=== PATIENT | male | born 1940 | race Caucasian/White ===

== ENCOUNTER 2021-04-23 20:26 | Inpatient (IN) ==
--- NOTE | 2021-04-23 23:00 | Emergency Department Note ---
History of Present Illness General Chief complaint: Laceration/Cut (Non-Suture) Stated complaint: FELL DOWN STEPS, LAC ON EYEBROW Time Seen by Provider: 04/23/21 22:58 Source: patient Mode of arrival: ambulatory Limitations: no limitations History of Present Illness Provider complaint: Fall downstairs, laceration to right forehead Onset (ago): hour(s) Location: head, upper extremity and lower extremity Radiation: non-radiation Severity: mild Pain Consistency: + intermittent Maximum Pain Intensity: 2 Quality: + aching Relieved By: + immobilization Exacerbated By: + movement Associated symptoms: + headaches, + weakness and + other (Upper respiratory symptoms); no confusion, no chest pain, no cough, no nausea/vomiting or no shortness of breath Treatments prior to arrival: none Home Medications Medication Instructions Recorded Confirmed Type fexofenadine-pseudoephedrine ER 1 tab PO QAM 06/29/19 04/24/21 History 180 mg-240 mg tablet,ext.release 24 hr (Joyce-D 24 Hour) ibuprofen 200 mg tablet (Advil) 200 mg PO QID PRN 06/29/19 04/24/21 History psyllium seed (sugar) oral powder 1 tbsp PO Q OTHER DAY 06/29/19 04/24/21 History (Metamucil (sugar)) rosuvastatin 10 mg tablet 5 mg PO QPM 06/29/19 04/24/21 History triamcinolone acetonide 55 mcg 1 spray INTRANASAL BID 06/29/19 04/24/21 History nasal spray aerosol (Nasacort) sildenafil 25 mg tablet (Viagra) 25 mg PO DAILY PRN 07/28/19 04/24/21 History pantoprazole 40 mg tablet,delayed 40 mg PO DAILY #30 tab 08/30/19 04/24/21 Rx release amoxicillin 875 mg-potassium 1 tab PO Q12H 7 Days #14 tab 04/24/21 Rx clavulanate 125 mg tablet (Augmentin) Allergies Allergy/AdvReac Type Severity Reaction Status Date / Time mold Allergy Mild eyes itch Verified 04/24/21 00:27 sneeze cat dander Allergy Unknown Verified 04/24/21 00:27 dog dander Allergy Unknown Verified 04/24/21 00:27 house dust Allergy Unknown Verified 04/24/21 00:27 ragweed pollen Allergy Unknown Verified 04/24/21 00:27 Past Med/Surg History Medical History Abdominal pain CAP (community acquired pneumonia) Chronic obstructive pulmonary disease Hearing deficit BL MARQUEZ Hyperlipidemia Osteoarthritis Prostate cancer S/P BRACHYTHERAPY Tubular adenoma Vertigo Surgical History History of colonoscopy (06/2019) History of esophagogastroduodenoscopy (EGD) (06/2019) History of prostate biopsy History of tonsillectomy and adenoidectomy History of wisdom tooth extraction Family History Mother Fallopian tube cancer, carcinoma Grandmother (Maternal) Family history of diabetes mellitus Brother History of colon polyps Social History Smoking Status: Former smoker Second Hand Exposure: No; Hx Alcohol Use: Yes Alcohol type: beer, wine and hard liquor Hx Substance Use: No Preferred Language: Estonian Communication Ability: Effective Dredge Pipeman Required: No Beliefs That Will Affect Care: None Current Living Situation: Alone Feels Safe at Home: Yes Assistive Devices: Glasses and Hearing Aid - Bilateral Review of Systems See HPI for pertinent positives & negatives. and A total of 10 systems reviewed and were otherwise negative Physical Exam Vital Signs Vital Signs - 24 hr 04/23/21 20:36 04/23/21 23:27 04/24/21 00:14 Temperature 36.6 C Temperature Source Temporal Artery Scan Pulse Rate 108 H Pulse Rate [Radial] 80 85 Respiratory Rate 16 16 16 Respiratory Effort / Characteristics Non-Labored Spontaneous Respiratory Depth Normal Blood Pressure 129/72 Blood Pressure [Left Arm] 132/98 160/80 H Blood Pressure Mean 91 Blood Pressure Mean [Left Arm] 109 106 Pulse Oximetry 94 95 96 Oxygen Delivery Method Room Air Room Air Room Air Sepsis Recent Fever Within 48 Hours No Sepsis New/Unexplained Change in Mental Status No Sepsis Action Taken by Nursing No Action Required 04/24/21 00:15 Temperature Temperature Source Pulse Rate Pulse Rate [Radial] Respiratory Rate Respiratory Effort / Characteristics Respiratory Depth Blood Pressure Blood Pressure [Left Arm] Blood Pressure Mean Blood Pressure Mean [Left Arm] Pulse Oximetry 96 Oxygen Delivery Method Sepsis Recent Fever Within 48 Hours Sepsis New/Unexplained Change in Mental Status Sepsis Action Taken by Nursing GENERAL: Wearing glasses, laceration noted to the right forehead NAD, non-toxic. EYE EXAM: Normal conjunctiva. PERRL, no anisocoria and EOM's grossly intact w/o pain. Supraorbital laceration approximately 3 cm. OROPHARYNX: Dry mucus membranes. Poor dentition noted. NECK: Supple, no nuchal rigidity, no adenopathy, non-tender. No signs of meningismus. No midline C-spine TTP. Chest: No reproducible chest wall pain. LUNGS: Clear to auscultation. Normal chest wall mechanics. HEART: NSR, no MRG. ABDOMEN: Abdomen soft, non-tender, normo-active bowel sounds, no masses, no rebound or guarding. BACK: No CVA TTP. SKIN: No rashes and no bruising. UPPER EXTREMITIES: Upper extremities are grossly normal. Mild pain to the lateral aspect of the right hand at the MCP. LOWER EXTREMITIES: Grossly normal, no edema. Mild pain to the right hip but with good flexion and extension. NEURO EXAM: A&O x3, cranial nerves II-XII grossly intact, normal speech, moves all 4 extremities on command w/o issue. Procedures Laceration Laceration 1: Site: face Side (If applicable): right Size (cm): 3 Description: linear Depth: simple, single layer Local Anesthetic: lidocaine 1% and with epi Amount of anesthesia used (mL): 1 Pre-repair: wound explored, irrigated extensively and deep structures i ntact Skin layer closed with: other (ethilon) Size (cm): 5-0 Number of sutures: 3 Technique: simple, interrupted Course Course Cardiac monitoring: An order was placed for continuous cardiac monitoring. The monitor shows a rate of 85 with sinus rhythm. Administered Medications Discontinued Medications Diphtheria/Pertussis/Tetanus Vacc (Diphtheria/Tetanus/Pertussis 0.5 Ml Syr/Vial) 0.5 ml IM .ONCE ONE Stop: 04/24/21 00:34 Last Admin: 04/24/21 00:56 Dose: 0.5 ml Documented by: [id number] Sodium Chloride (Nss 1000ml) 1,000 mls @ 999 mls/hr IV .Q1H1M ARIELLE Stop: 04/24/21 00:15 Last Admin: 04/23/21 23:27 Dose: 999 mls/hr Documented by: [id number] Medical Decision Making Differential Diagnosis Fracture, dislocation, contusion, intra-abdominal, pneumothorax, intrathoracic, intracranial, neurologic, compartment syndrome, rhabdomyolysis, as well as other pathologies. Medical Records Attestation: I reviewed the patient's medical records. Home Medications Current Medication List: was personally reviewed by me Laboratory Data Attestation: I reviewed the patient's lab results. Result diagrams: 04/23/21 23:20 04/23/21 23:20 Lab Results 04/23/21 04/23/21 04/24/21 Range/Units 23:20 23:20 01:00 WBC 5.83 (4.8-10.8) K/uL RBC 4.48 L (4.7-6.1) M/uL Hgb 14.0 (14.0-18.0) g/dL Hct 40.5 L (42-52) % MCV 90.4 (80-100) fL MCH 31.3 (25-34) pg MCHC 34.6 (32-36) g/dL RDW Std Deviation 47.6 H (36.4-46.3) fL RDW Coeff of Sami 14.3 (11.5-14.5) % Plt Count 117 L (130-400) K/uL MPV 9.2 (7.4-10.4) fL Immature Gran % (Auto) 0.2 % Neut % (Auto) 80.4 % Lymph % (Auto) 14.1 % [place] % (Auto) 5.1 % Eos % (Auto) 0.0 % Baso % (Auto) 0.2 % Neut # (Auto) 4.69 (1.4-6.5) K/uL Lymph # (Auto) 0.82 L (1.2-3.4) K/uL [place] # (Auto) 0.30 (0.11-0.59) K/uL Eos # (Auto) 0.00 (0-0.5) K/uL Baso # (Auto) 0.01 (0-0.2) K/uL Immature Gran # (Auto) 0.01 (0.00-0.02) K/uL Sodium 125 L (136-145) mmol/L Potassium 4.2 (3.5-5.1) mmol/L Chloride 97 L (98-107) mmol/L Carbon Dioxide 21 (21-32) mmol/L Anion Gap 7.0 (3-11) BUN 23 H (7-18) mg/dl Creatinine 1.14 (0.6-1.4) mg/dl Est Cr Clr Drug Dosing Not Reportable Est GFR ( Amer) 69.0 ml/min Est GFR (Non-Af Amer) 59.6 ml/min BUN/Creatinine Ratio 20.2 H (10-20) Glucose 121 H (70-99) mg/dl Calcium 8.6 (8.5-10.1) mg/dl Magnesium 2.2 (1.8-2.4) mg/dl Total Bilirubin 0.7 (0.2-1) mg/dl AST 59 H (15-37) U/L ALT 38 (12-78) U/L Alkaline Phosphatase 76 (45-117) U/L Troponin I 0.017 (0-0.045) ng/ml Total Protein 8.4 H (6.4-8.2) gm/dl Albumin 3.4 (3.4-5.0) gm/dl Globulin 5.0 H (2.5-4.0) gm/dl Albumin/Globulin Ratio 0.7 L (0.9-2) TSH 0.867 (0.300-4.500) uIu/ml COVID-19 Eval Order Covid19 at [facility] SARS-CoV-2 (PCR) (Negative) 04/24/21 Range/Units 01:00 WBC (4.8-10.8) K/uL RBC (4.7-6.1) M/uL Hgb (14.0-18.0) g/dL Hct (42-52) % MCV (80-100) fL MCH (25-34) pg MCHC (32-36) g/dL RDW Std Deviation (36.4-46.3) fL RDW Coeff of Sami (11.5-14.5) % Plt Count (130-400) K/uL MPV (7.4-10.4) fL Immature Gran % (Auto) % Neut % (Auto) % Lymph % (Auto) % [place] % (Auto) % Eos % (Auto) % Baso % (Auto) % Neut # (Auto) (1.4-6.5) K/uL Lymph # (Auto) (1.2-3.4) K/uL [place] # (Auto) (0.11-0.59) K/uL Eos # (Auto) (0-0.5) K/uL Baso # (Auto) (0-0.2) K/uL Immature Gran # (Auto) (0.00-0.02) K/uL Sodium (136-145) mmol/L Potassium (3.5-5.1) mmol/L Chloride (98-107) mmol/L Carbon Dioxide (21-32) mmol/L Anion Gap (3-11) BUN (7-18) mg/dl Creatinine (0.6-1.4) mg/dl Est Cr Clr Drug Dosing Est GFR ( Amer) ml/min Est GFR (Non-Af Amer) ml/min BUN/Creatinine Ratio (10-20) Glucose (70-99) mg/dl Calcium (8.5-10.1) mg/dl Magnesium (1.8-2.4) mg/dl Total Bilirubin (0.2-1) mg/dl AST (15-37) U/L ALT (12-78) U/L Alkaline Phosphatase (45-117) U/L Troponin I (0-0.045) ng/ml Total Protein (6.4-8.2) gm/dl Albumin (3.4-5.0) gm/dl Globulin (2.5-4.0) gm/dl Albumin/Globulin Ratio (0.9-2) TSH (0.300-4.500) uIu/ml COVID-19 Eval Order SARS-CoV-2 (PCR) NEGATIVE (Negative) Imaging Data Attestation: I personally reviewed and interpreted this imaging study as follows: My Impression: Pelvis and right hip x-ray: No obvious fracture dislocation Right hand x-ray: Questionable erosive change versus chronic fracture of the first metacarpal, no obvious fracture over the right fifth metacarpal Radiologist's Impression: CT head: No ICH or fracture CT cervical spine: No obvious fracture dislocation, enlarged lingual tonsil as well as possible lesion of her epiglottis CT facial without: Nasal bone fractures MDM Narrative Patient was seen due to concern for fall down a set of stairs prior to arrival. Patient is not anticoagulated did not pass out. The patient does not take blood thinning medications. The patient does have laceration to the right supraorbital area but no pain to palpation to the neck chest abdomen back or pelvis. The patient did have some mild pain to the right thigh and hip as well as to the right hand. The patient declined any pain medication. The patient did have CT of the head neck and face. Patient does have nasal bone fractures. Patient does have a prominence to the lingual tonsil as well as the epiglottis. The patient is not stridulous or having any difficulty with breathing. Patient was informed that he would likely need follow-up with ENT in the future for further evaluation. Patient initially ambulated to and from the bathroom without issue and is preferring to go home. I did discuss with the patient that he does have some hyponatremia which could contribute to the patient's weakness as the patient had had some weakness and upper respiratory type symptoms. The patient is vaccinated for Covid. The patient's plain films are unremarkable although the patient may have had chronic erosive change to the right first metacarpal but the patient states that that is chronic and has no pain to palpation at this time. The patient was unable to ambulate at the time of discharge as he seemed to be listing to the side. The patient may have combination of fatigue as well as may be postconcussive type symptoms. The patient is awake and alert and follows basic commands. Covid negative. Patient was ordered for shows of Augmentin given the nasal bone fractures him initially was printed a prescription as he was pending to go home but given his gait instability does not believe he would be safe for home at this time. I spoke with Dr. Lam of [facility] and the patient was admitted to the medicine service. Impression & Plan CHI (closed head injury), Fall, Facial laceration, Fracture of nasal bone Discharge Plan Visit Data Chief Complaint: Laceration/Cut (Non-Suture) Stated Complaint: FELL DOWN STEPS, LAC ON EYEBROW ED Provider: Ruy Rogers Discharge Problem: CHI (closed head injury), Fall, Facial laceration, Fracture of nasal bone Patient Disposition: Home - Self-Care Condition: Good Discharge Instructions Rush/Other Patient Handouts: ED Facial Fracture, ED Laceration, Face: Stitches or Tape Activity Restrictions/Additional Instructions: Please return to the emergency department if you have worsening or recurrent symptoms not amenable to at-home treatment. Please call for a follow-up appointment with her primary care physician. Please take your medications as prescribed. If you have other concerns and/or complaints please feel free to also call your primary care physician's office or return the ED for further evaluation, management, and treatment. Take your medications as prescribed. Please make sure that you apply a daily dressing. Change the dressing if it becomes wet or soiled. Please look out for signs of infection such as expanding redness or foul-smelling drainage. You may apply some antibiotic ointment with each daily dressing change. You may apply gentle soap and water but do not submerge the area. Please have your sutures removed in 7 to 10 days. Please consider taking a probiotic. Your CT of the cervical spine noted a concern for prominence of right lingual tonsil as well as the epiglottis. Please talk with your primary care physician about following up with ear nose and throat. You have been examined and treated today on an emergency basis only. This is not a substitute for, or an effort to provide, complete comprehensive medical care. It is impossible to recognize and treat all injuries or illnesses in a single emergency department visit. It is therefore important that you follow up closely with [facility], your PCP, and/or your specialist(s). Call as soon as possible for an appointment. Thank you for your time and consideration. I look forward to speaking with you again soon. Please don't hesitate to call us if you have any questions. Interventions: ED Discharge Assessment Last Done: 04/24/21 02:59 Forms Stand Alone Forms: My [facility], Virtual Emergency Department, Important Visit Information Prescriptions Prescriptions: New amoxicillin-pot clavulanate [Augmentin] 875-125 mg tablet 1 tab PO Q12H 7 Days Qty: 14 RF: 0 No Action pantoprazole 40 mg tablet,delayed release (DR/EC) 40 mg PO DAILY Qty: 30 RF: 11 sildenafil [Viagra] 25 mg tablet 25 mg PO DAILY PRN (Reason: NEEDED) RF: 0 triamcinolone acetonide [Nasacort] 55 mcg Aerosol,[place] 1 spray INTRANASAL BID RF: 0 ibuprofen [Advil] 200 mg Tablet 200 mg PO QID PRN (Reason: Pain) RF: 0 rosuvastatin 10 mg Tablet 5 mg PO QPM RF: 0 Metamucil (sugar) Powder 1 tbsp PO Q OTHER DAY RF: 0 Joyce-D 24 Hour 180-240 mg Tablet Extended Release 24 Hr 1 tab PO QAM RF: 0 Referrals Referrals: PCP,NO [Primary Care Provider] - Discharge Problem: CHI (closed head injury) Qualifiers: Encounter type: initial encounter Qualified Code(s): S09.90XA - Unspecified injury of head, initial encounter Fall Qualifiers: Encounter type: initial encounter Qualified Code(s): W19.XXXA - Unspecified fall, initial encounter Facial laceration Qualifiers: Encounter type: initial encounter Qualified Code(s): S01.81XA - Laceration without foreign body of other part of head, initial encounter Fracture of nasal bone Qualifiers: Encounter type: initial encounter Fracture type: closed Qualified Code(s): S02.2XXA - Fracture of nasal bones, initial encounter for closed fracture
[2021-04-23] MEDS ORDERED: SODIUM CHLORIDE 0.9% 1000ML 1,000 ML IV SCH (23:15)
[2021-04-23 23:37] LABS: Basophils # (auto) 0.01 K/uL (0-0.2); Basophils % (auto) 0.2 %; Hematocrit (blood only) 40.5 % (42-52); Immature Granulocytes # (auto) 0.01 K/uL (0.00-0.02); Immature Granulocytes % (auto) 0.2 %; Lymphocytes # (auto) 0.82 K/uL (1.2-3.4); Lymphocytes % (auto) 14.1 %; Mean Corpuscular Hemoglobin 31.3 pg (25-34); Mean Corpuscular Hgb Conc 34.6 g/dL (32-36); Mean Corpuscular Volume 90.4 fL (80-100); Mean Platelet Volume 9.2 fL (7.4-10.4); Monocytes % (auto) 5.1 %; Neutrophils # (auto) 4.69 K/uL (1.4-6.5); Neutrophils % (auto) 80.4 %; Platelet Count 117 K/uL (130-400); RDW Coefficient of Variation 14.3 % (11.5-14.5); RDW Standard Deviation 47.6 fL (36.4-46.3); Red Blood Count 4.48 M/uL (4.7-6.1); White Blood Count 5.83 K/uL (4.8-10.8)
[2021-04-24 00:04] LABS: Alanine Aminotransferase 38 U/L (12-78); Albumin Level 3.4 gm/dl (3.4-5.0); Aspartate Aminotransferase 59 U/L (15-37); BUN Creatinine Ratio 20.2 (10-20); Blood Urea Nitrogen 23 mg/dl (7-18); Calcium 8.6 mg/dl (8.5-10.1); Carbon Dioxide 21 mmol/L (21-32); Chloride 97 mmol/L (98-107); Est GFR (Non-African American) 59.6 ml/min; Glucose 121 mg/dl (70-99); Magnesium 2.2 mg/dl (1.8-2.4); Potassium 4.2 mmol/L (3.5-5.1); Sodium 125 mmol/L (136-145)
[2021-04-24 00:12] LABS: Albumin Globulin Ratio 0.7 (0.9-2); Alkaline Phosphatase 76 U/L (45-117); Bilirubin,Total 0.7 mg/dl (0.2-1); Thyroid Stimulating Hormone 0.867 uIu/ml (0.300-4.500); Total Protein 8.4 gm/dl (6.4-8.2); Troponin I 0.017 ng/ml (0-0.045)
[2021-04-24] MEDS ORDERED: DIPHTHERIA/TETANUS/PERTUSSIS 0.5 ML SYR/VIAL IM ONE (00:33)
[2021-04-24] MEDS ORDERED: LIDOCAINE/EPINEPHRINE 1% 20 ML VIAL ONE (01:09)
[2021-04-24] MEDS ORDERED: AMOXICILLIN/CLAVULANATE 875 MG TAB PO ONE (01:38)
--- NOTE | 2021-04-24 02:35 | History & Physical Report ---
Date of Service April 24, 2021 Assessment & Plan (1) Hyponatremia: Plan: 81-year-old male with history of hyperlipidemia presenting after a fall at home resulting in closed head injury and mildly displaced nasal bone fracture. Work- up reveals hyponatremia with sodium = 125. No prior lab values available for comparison. No seizure. Patient does report gait instability and decreased function over the past several months. Possibly secondary to hyponatremia? Patient appears euvolemic. States that he eats fairly well at home. Check urine and serum osmolality Check random sodium Monitor sodium We will check Lyme and anaplasmosis as well (2) CHI (closed head injury): Plan: Status post fall down 10 steps with facial trauma resulting in laceration as well as nasal bone fracture. Patient presently awake, alert, oriented x4. Answering questions appropriately. Nonfocal neurological exam. He is not on any blood thinners or antiplatelet agents. Neurochecks every 4 hours Wound care to shift Continue Augmentin for nasal bone fracture -Continue Nasocort (3) Fall: Plan: Patient admits to gait instability. Question of secondary to hyponatremia versus overall deconditioning versus other cause Work-up and management of sodium as above Check CK Fall precautions PT/OT evaluation (4) Hyperlipidemia: Plan: Chronic. Continue Crestor 5 mg p.o. every morning Plan: F/E/N - Hep-Lock. Monitor sodium. Heart healthy diet as tolerated ProphylaxisSCDs Codefull Dispoobservation to medical History of Present Illness Chief Complaint: Fall Primary Care Provider: NO PCP Jani West is an 81-year-old male with history of hyperlipidemia, possible COPD presenting after a fall at home. Patient states that this afternoon he lost his balance and fell down 10 [address] steps in his home. He hit his forehead on the ground as well as his right hand. Denies loss of consciousness. He was unable to get up for approximately 20 minutes until he pulled himself up on a chair. Patient reports intermittent dizziness and gait instability for the last 2 months. He denies fever/chills/chest pain/palpitations/cough/shortness of breath He denies headache/visual changes/tinnitus/blurry vision/amnesia No additional complaints at this time ER course: Augmentin Tetanus shot Allergies Allergy/AdvReac Type Severity Reaction Status Date / Time mold Allergy Mild eyes itch Verified 04/24/21 00:27 sneeze cat dander Allergy Unknown Verified 04/24/21 00:27 dog dander Allergy Unknown Verified 04/24/21 00:27 house dust Allergy Unknown Verified 04/24/21 00:27 ragweed pollen Allergy Unknown Verified 04/24/21 00:27 Home Medications Medication Instructions Recorded Confirmed Type fexofenadine-pseudoephedrine ER 1 tab PO QAM 06/29/19 04/24/21 History 180 mg-240 mg tablet,ext.release 24 hr (Joyce-D 24 Hour) ibuprofen 200 mg tablet (Advil) 200 mg PO QID PRN 06/29/19 04/24/21 History psyllium seed (sugar) oral powder 1 tbsp PO Q OTHER DAY 06/29/19 04/24/21 History (Metamucil (sugar)) rosuvastatin 10 mg tablet 5 mg PO QPM 06/29/19 04/24/21 History triamcinolone acetonide 55 mcg 1 spray INTRANASAL BID 06/29/19 04/24/21 History nasal spray aerosol (Nasacort) sildenafil 25 mg tablet (Viagra) 25 mg PO DAILY PRN 07/28/19 04/24/21 History pantoprazole 40 mg tablet,delayed 40 mg PO DAILY #30 tab 08/30/19 04/24/21 Rx release amoxicillin 875 mg-potassium 1 tab PO Q12H 7 Days #14 tab 04/24/21 Rx clavulanate 125 mg tablet (Augmentin) Past Med/Surg History Medical History Abdominal pain CAP (community acquired pneumonia) Chronic obstructive pulmonary disease Hearing deficit BL [facility] Hyperlipidemia Osteoarthritis Prostate cancer S/P BRACHYTHERAPY Tubular adenoma Vertigo Surgical History History of colonoscopy (06/2019) History of esophagogastroduodenoscopy (EGD) (06/2019) History of prostate biopsy History of tonsillectomy and adenoidectomy History of wisdom tooth extraction Family History Mother Fallopian tube cancer, carcinoma Grandmother (Maternal) Family history of diabetes mellitus Brother History of colon polyps Social History Smoking Status: Former smoker Second Hand Exposure: No; Hx Alcohol Use: Yes Alcohol type: beer, wine and hard liquor Hx Substance Use: No Preferred Language: Filipino Communication Ability: Effective Parish Visitor Required: No Beliefs That Will Affect Care: None Current Living Situation: Alone Feels Safe at Home: Yes Assistive Devices: Glasses and Hearing Aid - Bilateral Review of Systems Review of Systems: All systems reviewed & are unremarkable except as noted in HPI & below Physical Exam Physical Exam: General: patient resting comfortably, NAD, thin, awake alert and oriented x4 Skin: Laceration to right forehead status post repair HEENT: PERRL, EOMI, anicteric sclera, conjunctiva without injection, external ear normal to inspection and nontender, nares patent, moist mucus membranes, poor dentition, no oropharyngeal lesions, neck supple, trachea midline, no LAD, no thyromegaly, no JVD Heart: +S1/S2, regular, no m/r/g, no chest wall pain or bruising Lungs: equal air entry bilaterally, no rales/rhonchi/wheezes Abd: +BS, soft, NT/ND, no masses/organomegaly/ascites Ext: warm, 2+ pulses in UE/LE bilaterally, no clubbing/cyanosis or edema Neuro: nonfocal, patient AA&O x 4, speech intact, no facial droop, moving all extremities on command with equal strength 5/5 Results & Data Results & Data ([facility]) Vital Signs (Past 12 Hours) Vital Signs Temp Pulse Pulse Resp BP BP Pulse Ox 04/24/21 00:15 96 04/24/21 00:14 85 16 160/80 H 96 04/23/21 23:27 80 16 132/98 95 04/23/21 20:36 36.6 C 108 H 16 129/72 94 Laboratory Results Laboratory Results WBC 5.83 K/uL (4.8-10.8) 04/23/21 23:20 RBC 4.48 M/uL (4.7-6.1) L 04/23/21 23:20 Hgb 14.0 g/dL (14.0-18.0) 04/23/21 23:20 Hct 40.5 % (42-52) L 04/23/21 23:20 MCV 90.4 fL (80-100) 04/23/21 23:20 MCH 31.3 pg (25-34) 04/23/21 23:20 MCHC 34.6 g/dL (32-36) 04/23/21 23:20 RDW Std Deviation 47.6 fL (36.4-46.3) H 04/23/21 23:20 RDW Coeff of Sami 14.3 % (11.5-14.5) 04/23/21 23:20 Plt Count 117 K/uL (130-400) L 04/23/21 23:20 MPV 9.2 fL (7.4-10.4) 04/23/21 23:20 Immature Gran % (Auto) 0.2 % 04/23/21 23:20 Neut % (Auto) 80.4 % 04/23/21 23:20 Lymph % (Auto) 14.1 % 04/23/21 23:20 Barron % (Auto) 5.1 % 04/23/21 23:20 Eos % (Auto) 0.0 % 04/23/21 23:20 Baso % (Auto) 0.2 % 04/23/21 23:20 Neut # (Auto) 4.69 K/uL (1.4-6.5) 04/23/21 23:20 Lymph # (Auto) 0.82 K/uL (1.2-3.4) L 04/23/21 23:20 Barron # (Auto) 0.30 K/uL (0.11-0.59) 04/23/21 23:20 Eos # (Auto) 0.00 K/uL (0-0.5) 04/23/21 23:20 Baso # (Auto) 0.01 K/uL (0-0.2) 04/23/21 23:20 Immature Gran # (Auto) 0.01 K/uL (0.00-0.02) 04/23/21 23:20 Sodium 125 mmol/L (136-145) L 04/23/21 23:20 Potassium 4.2 mmol/L (3.5-5.1) 04/23/21 23:20 Chloride 97 mmol/L (98-107) L 04/23/21 23:20 Carbon Dioxide 21 mmol/L (21-32) 04/23/21 23:20 Anion Gap 7.0 (3-11) 04/23/21 23:20 BUN 23 mg/dl (7-18) H 04/23/21 23:20 Creatinine 1.14 mg/dl (0.6-1.4) 04/23/21 23:20 Est Cr Clr Drug Dosing Not Reportable 04/23/21 23:20 Est GFR ( Amer) 69.0 ml/min 04/23/21 23:20 Est GFR (Non-Af Amer) 59.6 ml/min 04/23/21 23:20 BUN/Creatinine Ratio 20.2 (10-20) H 04/23/21 23:20 Glucose 121 mg/dl (70-99) H 04/23/21 23:20 Calcium 8.6 mg/dl (8.5-10.1) 04/23/21 23:20 Magnesium 2.2 mg/dl (1.8-2.4) 04/23/21 23:20 Total Bilirubin 0.7 mg/dl (0.2-1) 04/23/21 23:20 AST 59 U/L (15-37) H 04/23/21 23:20 ALT 38 U/L (12-78) 04/23/21 23:20 Alkaline Phosphatase 76 U/L (45-117) 04/23/21 23:20 Troponin I 0.017 ng/ml (0-0.045) 04/23/21 23:20 Total Protein 8.4 gm/dl (6.4-8.2) H 04/23/21 23:20 Albumin 3.4 gm/dl (3.4-5.0) 04/23/21 23:20 Globulin 5.0 gm/dl (2.5-4.0) H 04/23/21 23:20 Albumin/Globulin Ratio 0.7 (0.9-2) L 04/23/21 23:20 TSH 0.867 uIu/ml (0.300-4.500) 04/23/21 23:20 COVID-19 Eval Order Covid19 at [facility] 04/24/21 01:00 SARS-CoV-2 (PCR) NEGATIVE (Negative) 04/24/21 01:00 ECG Additional Comments: EKG with normal sinus rhythm at 84 bpm WV = 170, QRS = 92, QTc = [address] changes present in lateral leads, no acute ischemic changes Code Status & VTE Plan VTE Prophylaxis Plan VTE Prophylaxis will be ordered: Yes PG Care Time/CCT Total # of Minutes Spent Total Time Spent with Patient: Total time spent is greater than 50% in coordination of care (as documented) at patient's floor/unit and/or counseling patient: Coding Level of Care Code INT OBSERVATION CARE 50M LVL 2 Diagnoses CHI (closed head injury) S09.90XA Encounter type: initial encounter Fall W19.XXXA Encounter type: initial encounter Hyperlipidemia E78.5 Hyponatremia E87.1 (1) CHI (closed head injury) Encounter type: initial encounter Qualified Code(s): S09.90XA - Unspecified injury of head, initial encounter (2) Fall Encounter type: initial encounter Qualified Code(s): W19.XXXA - Unspecified fall, initial encounter
[2021-04-24] MEDS ORDERED: ACETAMINOPHEN 325 MG TAB PO PRN (03:57)
[2021-04-24] MEDS ORDERED: ONDANSETRON INJ 2 MG/ML 2 ML VIAL IV PRN (03:57)
[2021-04-24 04:40] LABS: Creatine Kinase 798 U/L (39-308); Phosphorus 3.6 mg/dl (2.5-4.9)
[2021-04-24] MEDS: PATIENT'S HEIGHT AND/OR WEIGHT NEEDED SCH ×2 (06:28→07:32)
[2021-04-24 06:43] LABS: Basophils # (auto) 0.01 K/uL (0-0.2); Basophils % (auto) 0.2 %; Hematocrit (blood only) 37.1 % (42-52); Hemoglobin 12.8 g/dL (14.0-18.0); Lymphocytes # (auto) 0.48 K/uL (1.2-3.4); Lymphocytes % (auto) 9.5 %; Mean Corpuscular Hemoglobin 30.7 pg (25-34); Mean Corpuscular Hgb Conc 34.5 g/dL (32-36); Mean Platelet Volume 9.7 fL (7.4-10.4); Monocytes # (auto) 0.23 K/uL (0.11-0.59); Monocytes % (auto) 4.5 %; Neutrophils # (auto) 4.34 K/uL (1.4-6.5); Neutrophils % (auto) 85.8 %; Platelet Count 103 K/uL (130-400); RDW Coefficient of Variation 14.3 % (11.5-14.5); RDW Standard Deviation 47.5 fL (36.4-46.3); Red Blood Count 4.17 M/uL (4.7-6.1); White Blood Count 5.06 K/uL (4.8-10.8)
--- NOTE | 2021-04-24 06:51 | CT Scan Report ---
CT head/brain wo con CLINICAL HISTORY: 81 years-old Male with fall, forehead wound. Acute head injury status post fall TECHNIQUE: Multiple axial CT images of the head were obtained without contrast. A dose lowering tech nique was utilized adhering to the principles of ALARA. COMPARISON: CT cervical spine and maxillofacial studies of same day FINDINGS: No acute intracranial hemorrhage, midline shift, intracranial mass, hydrocephalus, territorial ischem ia or abnormal extra-axial collection. Age-related involutional changes. White matter hypodensities s uggestive of chronic microvascular ischemic disease. Falx cerebri calcifications. The calvarium is intact. The paranasal sinuses, mastoid air cells, and middle ear cavities are clear . IMPRESSION: No acute intracranial abnormality or calvarial fracture. ACT 112: Negative or not required by law. The above report was generated using voice recognition software. It may contain grammatical, syntax o r spelling errors. Electronically signed by: Brian Sanders M.D. 04/24/2021 6:49 AM
--- NOTE | 2021-04-24 07:04 | CT Scan Report ---
CT facial bones wo con CLINICAL HISTORY: 81 years-old Male presenting with fall. Acute facial injury status post fall COMPARISON STUDY: CT head and cervical spine studies of same day TECHNIQUE: High-resolution CT scan of the facial bones is performed. Images are reviewed in the axia l, sagittal, and coronal planes. IV contrast was not administered for this examination. A dose lower ing technique was utilized adhering to the principles of ALARA. CT DOSE: 1066.62 mGy.cm FINDINGS: Opacity of the right lung apex is incompletely evaluated on the wind turbine technician localizer images, possibly over lying the right first rib. Small contusions of the forehead. Mild subcutaneous edema surrounds the ac shelley bilateral nasal bone fractures. The left nasal bone fractures nondisplaced. There is minimal disp lacement and angulation of the right nasal bone fracture. Mild sigmoidal bowing and spurring the nasa l septum. No additional acute facial bone fracture identified. The mastoid air cells and middle ear c avities are clear. Numerous periapical cysts of the teeth with suggested dental caries. No orbital fr acture. Mild mucosal thickening of the ethmoid air cells. IMPRESSION: Acute bilateral nasal bone fractures with mild displacement on the right. ACT 112: Negative or not required by law. The above report was generated using voice recognition software. It may contain grammatical, syntax o r spelling errors. Electronically signed by: Brian Sanders M.D. 04/24/2021 7:02 AM
--- NOTE | 2021-04-24 07:32 | CT Scan Report ---
CT SCAN OF THE CERVICAL SPINE CLINICAL HISTORY: Trauma. Fall. COMPARISON STUDY: No priors. TECHNIQUE: CT scan of the cervical spine is performed from the skull base to the upper thoracic spine . Images are reviewed in the axial, sagittal, and coronal planes. IV contrast was not administered fo r this examination. A dose lowering technique was utilized adhering to the principles of ALARA. FINDINGS: Skeletal structures: The skeletal structures are osteopenic. There is no evidence of fracture or subl uxation involving the cervical spine. Vertebral body height is maintained. There is minimal anterolis thesis at C4-C5. Alignment is otherwise preserved. Anterior osteophytes are seen throughout. There is mild straightening of the cervical lordosis. The odontoid process and lateral masses are intact. The atlantoaxial articulation is preserved noting productive degenerative change. The spinous processes appear intact. There is moderate to advanced multilevel cervical spondylosis. Uncovertebral and facet arthropathy contribute to neural foraminal stenosis at most levels. Intervertebral discs: Moderate to advanced disc space narrowing is seen at C5-C6, C6-C7, and C7-T1. M ild to moderate narrowing is seen at the remaining cervical levels. Central canal: Posterior disc osteophyte complexes are seen at all levels between C3-C4 and C7-T1. Th is contributes to multilevel acquired compromise of the central canal. Soft tissues: The prevertebral and paraspinous soft tissues are within normal limits. There is athero sclerotic calcification of the carotid bulbs. There is nonspecific nodularity of the epiglottis. Calvarium: The visualized calvarium at the skull base appears intact. Brain parenchyma: Partially visualized brain parenchyma at the skull base is within normal limits. Sinuses and mastoids: The visualized paranasal sinuses are clear. The mastoid air cells are well pneu matized. Lung apices: Emphysematous change is noted the apices. IMPRESSION: 1. There is no evidence of fracture or subluxation involving the cervical spine. 2. Osteopenia and spondylotic change as above. 3. There is nonspecific nodularity of the epiglottis. Consider correlation with direct visualization. ACT 112: Negative or not required by law. Electronically signed by: Duncan Vernon M.D. 04/24/2021 7:31 AM
--- NOTE | 2021-04-24 07:36 | XRay Report ---
SINGLE VIEW PELVIS; 2 VIEWS RIGHT HIP CLINICAL HISTORY: Fall with right hip pain. FINDINGS: An AP view of the pelvis with AP and frog-leg views of the right hip are obtained. No prior studies are available for comparison at the time of dictation. The skeletal structures are osteopeni c. There is no radiographic evidence of acute fracture involving the hips or bony pelvis. Moderate de generative joint space narrowing and arthritic change is seen in the hips. Advanced lumbosacral spond ylosis is partially visualized. The sacroiliac joints are normal. Brachytherapy implants are noted in the prostate gland. The overlying soft tissues are normal as imaged. IMPRESSION: No acute bony abnormality is identified. Electronically signed by: Duncan Vernon M.D. 04/24/2021 7:34 AM
[2021-04-24 07:37] LABS: BUN Creatinine Ratio 24.8 (10-20); Calcium 8.3 mg/dl (8.5-10.1); Creatinine Clr Calc Pharmacy 71.4 ml/min; Est GFR (Non-African American) 81.1 ml/min; Potassium 3.4 mmol/L (3.5-5.1)
[2021-04-24 07:41] LABS: Lyme Ab IgG w/WB Rflx Positive (Negative)
[2021-04-24 07:42] LABS: Lyme Ab IgM w/WB Rflx Positive (Negative)
--- NOTE | 2021-04-24 08:54 | XRay Report ---
RIGHT HAND 3 VIEWS CLINICAL HISTORY: Fall with right hand injury. Fifth finger pain. FINDINGS: 3 views of the right hand are obtained. No prior studies are available for comparison at th e time of dictation. The skeletal structures are osteopenic. No acute fracture is identified. Degener ative narrowing is seen at the radiocarpal articulation. Advanced osteoarthritic change is seen at th e first carpometacarpal joint where there is bony sclerosis, overgrowth, complete loss of the joint s pace, and subluxation. Moderate osteoarthritic change is seen at the second carpometacarpal joint. Os teoarthritic change is seen involving the interphalangeal joints, distal greater than proximal. Mild soft tissue edema is noted in the fingers. IMPRESSION: Osteopenia and degenerative change as above with no acute fracture identified. Electronically signed by: Duncan Vernon M.D. 04/24/2021 8:53 AM
--- NOTE | 2021-04-24 09:43 | Hospitalist Progress Note ---
Date of Service April 24, 2021 Assessment & Plan Admission and Anticipated Discharge Date Admission Date: April 24, 2021 Results & Data Results & Data ([facility]) Vital Signs (Past 12 Hours) Vital Signs Temp Pulse Pulse Resp BP BP Pulse Ox 04/24/21 07:43 38 C H 84 18 162/73 H 95 04/24/21 03:30 37.6 C H 75 14 164/73 H 98 04/24/21 00:15 96 04/24/21 00:14 85 16 160/80 H 96 04/23/21 23:27 80 16 132/98 95
[2021-04-24] MEDS: TRIAMCINOLONE ACET NASAL SPRAY 10.8ML BTL SCH ×2 (09:47→20:44)
[2021-04-24] MEDS: PSYLLIUM 58.6% POWDER PACKET PO SCH (09:48)
[2021-04-24] MEDS: PANTOprazole 40 MG TAB PO SCH (09:49)
[2021-04-24] MEDS: DOXYCYCLINE HYCLATE 100 MG CAP PO SCH ×2 (09:49→20:43)
[2021-04-24] MEDS: AMOXICILLIN/CLAVULANATE 875 MG TAB PO SCH ×2 (09:49→16:45)
[2021-04-24] MEDS ORDERED: SODIUM CHLORIDE 0.9% 1000ML 1,000 ML IV ONE (10:30)
[2021-04-24] MEDS ORDERED: POTASSIUM CHLORIDE CRTAB 20 MEQ TABCR PO STA (15:17)
--- NOTE | 2021-04-24 15:24 | Electrocardiogram Report ---
Test Reason : Blood Pressure : / mmHG Vent. Rate : 084 BPM Atrial Rate : 084 BPM P-R Int : 170 ms QRS Dur : 092 ms QT Int : 372 ms P-R-T Axes : 059 -06 044 degrees QTc Int : 439 ms Poor data quality, interpretation may be adversely affected Normal sinus rhythm Nonspecific ST abnormality Abnormal ECG When compared with ECG of 24-JAN-2009 09:16, No significant change was found Confirmed by Leonid Ya ([id number]) on 04/24/2021 3:24:32 PM Referred By: REFERRED SELF Confirmed By:Vern Ya
[2021-04-24] MEDS: ROSUVASTATIN CALCIUM 5 MG TAB PO SCH (20:43)
--- NOTE | 2021-04-25 08:17 | Hospitalist Progress Note ---
Date of Service April 25, 2021 Assessment & Plan (1) Hyponatremia: (2) CHI (closed head injury): (3) Fall: (4) Hyperlipidemia: Plan: 81-year-old male with history of hyperlipidemia presenting after a fall at home resulting in closed head injury and mildly displaced nasal bone fracture. Fall Patient admits to gait instability. Likely deconditioning. Fall precautions PT/OT evaluation--recommending rehab as patient not safe for two story home Spoke to patient's son Dillon ([phone]) and updated on his dad situation relayed that we do not believe the patient is safe for living alone at home, which is verified by PT recommendations -Patient's son and his will be in [facility] this weekend. They mentioned that they were willing to take him to live at home with them. -Patient's son did report that the patient told him of a few smaller falls preceding this 1, which did not result in any serious injury We will continue to communicate with case management about patient placement as of now patient does have home health set up for Friday but would be better served with inpatient rehabilitation Hyponatremia No seizure. Possibly secondary to hyponatremia? Patient appears euvolemic. States that he eats fairly well at home. Normal urine osmolality and random sodium Serum osmolality slightly diminished Normalized with NSS 1L x2 Continue to monitor CHI (closed head injury)/Nasal bone fracture Status post fall down 10 steps with facial trauma resulting in laceration as well as nasal bone fracture. -Stable, somewhat sore -Continue Nasocort Hyperlipidemia Continue Crestor 5 mg p.o. every morning F/E/N: Heart healthy diet Prophylaxis: SCDs Code: Full Dispo: MedSurg Admission and Anticipated Discharge Date Admission Date: April 24, 2021 Supervising Physician Co-Signing Physician Notes Patient seen and examined and examined with PGY-2 Dr. Gorman. Agree with history, exam findings, assessment and plan of care as outlined. In brief, Mr. West is an 81 year old male with history of hyperlipidemia admitted following a fall with an incidental finding of hyponatremia. Overall, feels ok. He reports that his family would be able to help him around the house. He does note that he has a staircase in the home that is quite narrow so he built a wider and less steep staircase to make it easier to get up and down. Vital signs and nursing notes reviewed. Febrile to 38C. Well appearing. Oriented x 3. Facial laceration with surrounding edema. Labs and imaging reviewed. 1. Fall. PT/OT. Recommended rehabDr. Vita spoke with patients son on the phone. Son lives near [place]. 2. Nasal bone fracture. Discontinue Augmentin. There is not open fracture that requires prophylactic antibiotics. 3. Supraorbital laceration, right. Repaired in the ED. 4. Hyponatremia. Resolved. 5. Lyme disease. IgG and IgM positive. Will presumptively treat with doxycycline. Dispo: Pending possible placement with acute rehab or SNF. Subjective Patient doing overall well. Reports feeling somewhat sore and a bit tired but ultimately improving. We talked about the possibility of inpatient rehabilitati on since he has been unstable and already had this fall. He vocalized preferring to go home if possible but ultimately would be open to inpatient rehabilitation if that was what we along with PT thought was best. Review of Systems Review of Systems: All systems reviewed & are unremarkable except as noted in Subjective Physical Exam Constitutional: WD/WN, vitals as above Respiratory: normal respiratory effort, lungs clear to auscultation Cardiovascular: RRR, no murmur, no edema Musculoskeletal: no cyanosis or clubbing, extremities motor strength 5/5 Skin: Well-healing laceration above right eyebrow Psychiatric: A+Ox3, euthymic affect Results & Data Results & Data ([facility]) Vital Signs (Past 12 Hours) Vital Signs Temp Pulse Resp BP Pulse Ox 04/25/21 07:14 36.9 C 68 16 134/70 95 04/24/21 22:00 37.1 C 69 17 131/75 95 Resident Activity Tracking Resident Involvement: Resident Care Provided Care Provided: Adult Hospital Medicine (1) CHI (closed head injury) Encounter type: initial encounter Qualified Code(s): S09.90XA - Unspecified injury of head, initial encounter (2) Fall Encounter type: initial encounter Qualified Code(s): W19.XXXA - Unspecified fall, initial encounter
[2021-04-25] MEDS: DOXYCYCLINE HYCLATE 100 MG CAP PO SCH ×2 (09:00→20:50)
[2021-04-25] MEDS: AMOXICILLIN/CLAVULANATE 875 MG TAB PO SCH (09:01)
[2021-04-25] MEDS: PANTOprazole 40 MG TAB PO SCH (09:01)
[2021-04-25] MEDS: TRIAMCINOLONE ACET NASAL SPRAY 10.8ML BTL SCH ×2 (09:02→20:50)
[2021-04-25 09:10] LABS: BUN Creatinine Ratio 22.9 (10-20); Calcium 8.6 mg/dl (8.5-10.1); Creatinine Clr Calc Pharmacy 71.4 ml/min; Est GFR (Non-African American) 81.1 ml/min
--- NOTE | 2021-04-25 13:13 | XRay Report ---
XR foot LT min 3V routine HISTORY: 81 years-old Male Fall, L great toe pain acute pain of the left great toe status post fall COMPARISON: None TECHNIQUE: 3 views of the left foot FINDINGS: Demineralized appearance the bones. Mild to moderate multifocal osteoarthritis. Large plantar entheso phyte of the calcaneus. Arterial calcifications. Limited evaluation of the phalanges secondary to pos itioning. No definite acute fracture, dislocation or opaque foreign body. IMPRESSION: Soft tissue swelling without acute fracture identified. ACT 112: Negative or not required by law. The above report was generated using voice recognition software. It may contain grammatical, syntax o r spelling errors. Electronically signed by: Brian Sanders M.D. 04/25/2021 1:11 PM
[2021-04-25 16:21] LABS: 18KDIGG Band NON-REACTIVE; 23KDIGG Band NON-REACTIVE; 23KDIGM Band REACTIVE; 28KDIGG Band NON-REACTIVE; 30KDIGG Band NON-REACTIVE; 39KDIGG Band NON-REACTIVE; 39KDIGM Band REACTIVE; 41KDIGG Band REACTIVE; 41KDIGM Band REACTIVE; 45KDIGG Band NON-REACTIVE; 58KDIGG Band REACTIVE; 66KDIGG Band NON-REACTIVE; 93KDIGG Band NON-REACTIVE; Lyme Antibodies, WB IgG NEGATIVE (NEGATIVE); Lyme Antibodies, WB IgM POSITIVE (NEGATIVE)
[2021-04-25] MEDS: ROSUVASTATIN CALCIUM 5 MG TAB PO SCH (20:50)
[2021-04-26] MEDS: DOXYCYCLINE HYCLATE 100 MG CAP PO SCH ×2 (07:49→20:09)
[2021-04-26] MEDS: PSYLLIUM 58.6% POWDER PACKET PO SCH (07:49)
[2021-04-26] MEDS: PANTOprazole 40 MG TAB PO SCH (07:49)
[2021-04-26] MEDS: TRIAMCINOLONE ACET NASAL SPRAY 10.8ML BTL SCH ×2 (07:50→20:09)
--- NOTE | 2021-04-26 09:31 | Hospitalist Progress Note ---
Date of Service April 26, 2021 Assessment & Plan (1) Hyponatremia: (2) CHI (closed head injury): (3) Fall: (4) Hyperlipidemia: Plan: 81-year-old male with history of hyperlipidemia presenting after a fall at home resulting in closed head injury and mildly displaced nasal bone fracture. Fall Patient admits to gait instability. Likely deconditioning. Fall precautions PT/OT evaluation--recommending rehab as patient not safe for two story home Spoke to patient's son Dillon ([phone]) and updated on his dad situation relayed that we do not believe the patient is safe for living alone at home, which is verified by PT recommendations -Patient's son and his will be in [facility] this weekend. They mentioned that they were willing to take him to live at home with them. -Patient's son did report that the patient told him of a few smaller falls preceding this 1, which did not result in any serious injury We will continue to communicate with case management about patient placement as of now patient does have home health set up for Friday but would be better served with inpatient rehabilitation CHI (closed head injury)/Nasal bone fracture Status post fall down 10 steps with facial trauma resulting in laceration as well as nasal bone fracture. - Stable, somewhat sore - Has sutures above right eyebrow placed on 8/9 PM--plan to remove 7-10 days after this - Continue Nasocort Hyponatremia - resolved Patient appears euvolemic. States that he eats fairly well at home. Normal urine osmolality and random sodium Serum osmolality slightly diminished Normalized with NSS 1L x2 Continue to monitor CHI (closed head injury)/Nasal bone fracture Status post fall down 10 steps with facial trauma resulting in laceration as well as nasal bone fracture. - Stable, somewhat sore - Has sutures above right eyebrow placed on 8/9 PM--plan to remove 7-10 days after this - Continue Nasocort Hyperlipidemia Continue Crestor 5 mg p.o. every morning F/E/N: Heart healthy diet Prophylaxis: SCDs Code: Full Dispo: MedSurg Admission and Anticipated Discharge Date Admission Date: April 25, 2021 Supervising Physician Co-Signing Physician Notes Patient seen and examined and examined with PGY-2 Dr. Gorman. Agree with history, exam findings, assessment and plan of care as outlined. In brief, Mr. West is an 81 year old male with history of hyperlipidemia admitted following a fall with an incidental finding of hyponatremia. Overall, feels ok. He reports that his family would be able to help him around the house. Daughter and son are coming this weekend. Vital signs and nursing notes reviewed. Well appearing. Oriented x 3. Facial laceration with surrounding edema. Labs and imaging reviewed. 1. Fall. PT/OT. Now may not qualify for rehab or SNF given improvement. However, Son will be coming this weekend to help with safe living situation/discharge planning. 2. Nasal bone fracture. Discontinue Augmentin. There is not open fracture that requires prophylactic antibiotics. 3. Supraorbital laceration, right. Repaired in the ED. Sutures will need to be removed Friday, April 30 or FridayMay 01. 4. Hyponatremia. Resolved. 5. Lyme disease. All IgM bands are positive with positive IgG bands. Treating with doxycycline. Dispo: Pending discharge planning. Will try to get rehab or SNF approved, but unlike with improvement in functional status. Family will be here on Friday to assist with home needs. Until then, unsafe to discharge home alone. Subjective Patient continues to do well this morning. No new complaints. Facial soreness remains but is improving per patient. Review of Systems Review of Systems: All systems reviewed & are unremarkable except as noted in Subjective Physical Exam Constitutional: WD/WN, vitals as above Respiratory: normal respiratory effort, lungs clear to auscultation Cardiovascular: RRR, no murmur, no edema Musculoskeletal: no cyanosis or clubbing, extremities motor strength 5/5 Skin: Right eyebrow laceration s/p repair with sutures in place Psychiatric: A+Ox3, euthymic affect Results & Data Results & Data ([facility]) Vital Signs (Past 12 Hours) Vital Signs Temp Pulse Resp BP BP Pulse Ox 04/26/21 07:33 37.1 C 66 16 151/72 H 95 04/25/21 22:54 37.2 C 70 16 131/62 95 (1) CHI (closed head injury) Encounter type: initial encounter Qualified Code(s): S09.90XA - Unspecified injury of head, initial encounter (2) Fall Encounter type: initial encounter Qualified Code(s): W19.XXXA - Unspecified fall, initial encounter
[2021-04-26] MEDS: ROSUVASTATIN CALCIUM 5 MG TAB PO SCH (20:09)
--- NOTE | 2021-04-27 08:26 | Hospitalist Progress Note ---
Date of Service April 27, 2021 Assessment & Plan (1) Hyponatremia: (2) CHI (closed head injury): (3) Fall: (4) Hyperlipidemia: Plan: 81-year-old male with history of hyperlipidemia presenting after a fall at home resulting in closed head injury and mildly displaced nasal bone fracture. Fall Patient admits to gait instability. Likely deconditioning. Fall precautions PT/OT evaluation--recommending rehab as patient not safe for two story home Spoke to patient's son Dillon ([phone]) and updated on his dad situation relayed that we do not believe the patient is safe for living alone at home, which is verified by PT recommendations -Patient's son and his will be in [place] area this weekend. They mentioned that they were willing to take him to live at home with them. -Patient's son did report that the patient told him of a few smaller falls preceding this 1, which did not result in any serious injury Case Management: - [facility] confirmed that the pt would not qualify through his insurance - The pt did well in P/T and O/T. the pt is not in agreement with a SNF. - the pt will be returning home with his daughter and son alternating who stays with the pt - pt's son who confirmed that the plan is for him and the pt's daughter to stay with the pt and maybe moving the pt to [place] after he fully recovers - spoke with Mallorie from [facility] who has the pt's start of care on Friday Patient's son will be in [place] tomorrow, Friday 04/27 and patient will have 07/04 company at home for the foreseeable future CHI (closed head injury)/Nasal bone fracture Status post fall down 10 steps with facial trauma resulting in laceration as well as nasal bone fracture. - Stable, somewhat sore - Has sutures above right eyebrow placed on 8/9 PM--to be removed 04/30 or 05/01 - Continue Nasocort Lyme Disease - All IgM and IgG bands positive for Lyme antibodies - Continue doxycycline 100mg PO BID x 10 days--currently day 4 (last day 05/03) Hyponatremia - resolved Patient appears euvolemic. States that he eats fairly well at home. Normal urine osmolality and random sodium Serum osmolality slightly diminished Normalized with NSS 1L x2 Continue to monitor Hyperlipidemia Continue Crestor 5 mg p.o. every morning F/E/N: Heart healthy diet Prophylaxis: SCDs Code: Full Dispo: MedSurg Admission and Anticipated Discharge Date Admission Date: April 25, 2021 Supervising Physician Co-Signing Physician Notes Attending attestation Pt seen and examined in concert with Dr. Gorman. In agreement with the docume nted findings as noted in the resident documentation with any exceptions or additions as noted here. Still feeling unsteady overall while standing and with mild aching pain of the face c/w his nasal bone fx and facial contusion/laceration. Looking forward to getting discharged. On examination, S1/S2 nl RRR no MCG. CTAB. Abd NT/ND BS+ve Ambulatory dysfunction w/ fall - PT/OT - recommendation for SNF/rehab, family situation may support home with home health PT and 24 hour care Lyme disease - continue doxycycline to complete 14 day course Else see resident documentation as noted. Subjective Feeling well this morning overall. He reports that he had some diarrhea initially and now resolved. Review of Systems Review of Systems: All systems reviewed & are unremarkable except as noted in Subjective Physical Exam Constitutional: WD/WN, vitals as above Respiratory: normal respiratory effort, lungs clear to auscultation Cardiovascular: RRR, no murmur, no edema Musculoskeletal: no cyanosis or clubbing, extremities motor strength 5/5 Psychiatric: A+Ox3, euthymic affect Results & Data Results & Data ([facility]) Vital Signs (Past 12 Hours) Vital Signs Temp Pulse Resp BP Pulse Ox 04/26/21 23:11 36.8 C 62 18 160/76 H 97 Resident Activity Tracking Resident Involvement: Resident Care Provided Care Provided: Adult Hospital Medicine (1) CHI (closed head injury) Encounter type: initial encounter Qualified Code(s): S09.90XA - Unspecified injury of head, initial encounter (2) Fall Encounter type: initial encounter Qualified Code(s): W19.XXXA - Unspecified fall, initial encounter
[2021-04-27] MEDS: DOXYCYCLINE HYCLATE 100 MG CAP PO SCH ×2 (09:45→20:17)
[2021-04-27] MEDS: PANTOprazole 40 MG TAB PO SCH (09:45)
[2021-04-27] MEDS: TRIAMCINOLONE ACET NASAL SPRAY 10.8ML BTL SCH ×2 (09:46→20:17)
[2021-04-27] MEDS: ROSUVASTATIN CALCIUM 5 MG TAB PO SCH (20:17)
--- NOTE | 2021-04-28 06:51 | Hospitalist Progress Note ---
Date of Service April 28, 2021 Assessment & Plan (1) Fall: Plan: 81-year-old male with history of hyperlipidemia presenting after a fall at home resulting in closed head injury and mildly displaced nasal bone fracture. Fall Patient admits to gait instability. Likely deconditioning. Fall precautions PT/OT evaluation--recommending rehab as patient not safe for two story home Spoke to patient's son Dillon ([phone]) and updated on his dad situation relayed that we do not believe the patient is safe for living alone at home, which is verified by PT recommendations -Patient's son and his will be in [place] [facility] this weekend. They mentioned that they were willing to take him to live at home with them. -Patient's son did report that the patient told him of a few smaller falls preceding this 1, which did not result in any serious injury Case Management: - [facility] confirmed that the pt would not qualify through his insurance - The pt did well in P/T and O/T. the pt is not in agreement with a SNF. - the pt will be returning home with his daughter and son alternating who stays with the pt - pt's son who confirmed that the plan is for him and the pt's daughter to stay with the pt and maybe moving the pt to [place] after he fully recovers - spoke with Mallorie from [facility] who has the pt's start of care on Friday Patient's son will be in [place] tomorrow, Friday 04/27 and patient will have 24/7 company at home for the foreseeable future CHI (closed head injury)/Nasal bone fracture Status post fall down 10 steps with facial trauma resulting in laceration as well as nasal bone fracture. - Stable, somewhat sore - Has sutures above right eyebrow placed on 8/9 PM--to be removed 04/30 or 05/01 - Continue Nasocort Lyme Disease - All IgM and IgG bands positive for Lyme antibodies - Continue doxycycline 100mg PO BID x 10 days--currently day 4 (last day 05/03) Hyponatremia - resolved Patient appears euvolemic. States that he eats fairly well at home. Normal urine osmolality and random sodium Serum osmolality slightly diminished Normalized with NSS 1L x2 Continue to monitor Hyperlipidemia Continue Crestor 5 mg p.o. every morning F/E/N: Heart healthy diet Prophylaxis: SCDs Code: Full Dispo: MedSurg Admission and Anticipated Discharge Date Admission Date: April 25, 2021 Results & Data Results & Data ([facility]) Vital Signs (Past 12 Hours) Vital Signs Temp Pulse Resp BP Pulse Ox 04/28/21 06:14 36.6 C 65 16 145/66 H 94 04/27/21 22:09 36.9 C 61 16 154/71 H 98 (1) Fall Encounter type: initial encounter Qualified Code(s): W19.XXXA - Unspecified fall, initial encounter
[2021-04-28] MEDS: DOXYCYCLINE HYCLATE 100 MG CAP PO SCH (08:28)
[2021-04-28] MEDS: PANTOprazole 40 MG TAB PO SCH (08:28)
[2021-04-28] MEDS: TRIAMCINOLONE ACET NASAL SPRAY 10.8ML BTL SCH (08:29)
[2021-04-28] MEDS: PSYLLIUM 58.6% POWDER PACKET PO SCH (08:29)
--- NOTE | 2021-04-28 14:37 | Discharge Summary ---
Date of Service April 28, 2021 Admission HPI Per Admitting Provider Jani West is an 81-year-old male with history of hyperlipidemia, possible COPD presenting after a fall at home. Patient states that this afternoon he lost his balance and fell down 10 [address] steps in his home. He hit his forehead on the ground as well as his right hand. Denies loss of consciousness. He was unable to get up for approximately 20 minutes until he pulled himself up on a chair. Patient reports intermittent dizziness and gait instability for the last 2 months. He denies fever/chills/chest pain/palpitations/cough/shortness of breath He denies headache/visual changes/tinnitus/blurry vision/amnesia No additional complaints at this time ER course: Augmentin Tetanus shot Admission Exam Per Admitting Provider General: patient resting comfortably, NAD, thin, awake alert and oriented x4 Skin: Laceration to right forehead status post repair HEENT: PERRL, EOMI, anicteric sclera, conjunctiva without injection, external ear normal to inspection and nontender, nares patent, moist mucus membranes, poor dentition, no oropharyngeal lesions, neck supple, trachea midline, no LAD, no thyromegaly, no JVD Heart: +S1/S2, regular, no m/r/g, no chest wall pain or bruising Lungs: equal air entry bilaterally, no rales/rhonchi/wheezes Abd: +BS, soft, NT/ND, no masses/organomegaly/ascites Ext: warm, 2+ pulses in UE/LE bilaterally, no clubbing/cyanosis or edema Neuro: nonfocal, patient AA&O x 4, speech intact, no facial droop, moving all extremities on command with equal strength 5/5 Principal Diagnosis Facial fracture Discharge Exam Constitutional: well-appearing, no acute distress HEENT: R forehead laceration CV: regular rhythm, no murmur appreciated, extremities well-perfused, no LE edema Resp: CTABL, no wheezes/rales/rhonchi appreciated, no increased work of breathing MSK: no gross deformities appreciated Neuro: AOx4, no focal neurological deficits appreciated Discharge Data Allergies Allergy/AdvReac Type Severity Reaction Status Date / Time mold Allergy Mild eyes itch Verified 04/24/21 00:27 sneeze cat dander Allergy Unknown Verified 04/24/21 00:27 dog dander Allergy Unknown Verified 04/24/21 00:27 house dust Allergy Unknown Verified 04/24/21 00:27 ragweed pollen Allergy Unknown Verified 04/24/21 00:27 Consultations 04/24/21 02:11 ED Decision to Admit Stat Ordered Studies 04/23/21 23:08 CT cervical spine wo con Urgent CT facial bones wo con Urgent CT head/brain wo con Urgent Hospital Course (1) Fall: Fall CT head showed no acute intracranial abnormality. Patient's falls were felt to be secondary to ambulatory dysfunction. PT/OT was ordered and felt patient was most appropriate for inpatient rehab; however, patient and family declined, opting instead for home with home health. Facial fracture Sutures were placed on patient's R forehead facial laceration on 04/23, to be removed on 04/30 or 05/01. Continue nasocort. Lyme disease Lyme IgM and IgG bands were found to be positive. Doxycyline was started for a ten-day course. Continue 100mg twice daily through 05/03. Hyponatremia - resolved Patient was treated with two 1L boluses of NSS, and hyponatremia was found to resolve. Urine osmolality was normal. No follow-up BMPs were felt indicated. Hyperlipidemia Patient's home crestor was continued during his hospitalization. Total Time Total Time Spent Total Time Spent (In Minutes): see attending documentation Discharge Plan Discharge Items Patient Disposition: Home - Home Health Services Reason For Visit: FALL, HEAD TRAUMA, HYPONATREMIA Discharge Diagnosis: Fall, closed head injury, nasal bone fracture Condition on Discharge: Good Activity: Per Instructions section Non-emergency contact: Primary Care Provider Call non-emergency contact if: you have any medication questions Follow-up/Referrals: PCP,NO [Physician] - Diet: Heart Healthy Addtl Attending Provider Instructions: You were admitted to [facility] due to a fall at home. Upon arrival at the hospital you were found to have low sodium levels in your blood--this was treated with saline fluid intravenously. Additionally, you were found to have fractures of your nasal bones on both sides. You also had a laceration above your right eyebrow, which was repaired with sutures. As you did have a fall at home, Physical Therapy evaluated you. They recommended that you have Physical Therapy outside of the hospital to continue to work on your strength and coordination at home so as to avoid future falls. Home Physical Therapy has been arranged for you and they will be visiting you at your home on Friday, April 29. Please follow up with your primary care provider to discuss your hospitalization and for continued management of your chronic conditions. Additionally, please follow with your PCP for removal of your sutures on April 30 or --alterna tively, you may return to the hospital's emergency department to have these removed. If you develop any concerning signs/symptoms such as weakness, dizziness, repeated falls, or other concerning issues, please return to the hospital for further evaluation. Pending Studies at Discharge: No Stand-Alone Forms: [facility] [employer], Smoking Cessation Medications and DC Order Prescriptions: New doxycycline hyclate 100 mg Capsule 100 mg PO BID 5 Days Qty: 10 RF: 0 Continued pantoprazole 40 mg tablet,delayed release (DR/EC) 40 mg PO DAILY Qty: 30 RF: 11 sildenafil [Viagra] 25 mg tablet 25 mg PO DAILY PRN (Reason: NEEDED) RF: 0 triamcinolone acetonide [Nasacort] 55 mcg Aerosol,[place] 1 spray INTRANASAL BID RF: 0 ibuprofen [Advil] 200 mg Tablet 200 mg PO QID PRN (Reason: Pain) RF: 0 rosuvastatin 10 mg Tablet 5 mg PO QPM RF: 0 Metamucil (sugar) Powder 1 tbsp PO Q OTHER DAY RF: 0 Joyce-D 24 Hour 180-240 mg Tablet Extended Release 24 Hr 1 tab PO QAM RF: 0 Discharge Orders: Discharge Order (Routine); Ordered 04/28/21 Ordered By: Ruy Beverly/Other Patient Handouts: ED Hyponatremia, ED Lyme Disease Admission Data Admit Date/Time: 04/25/21 16:34 Attending Provider: Joni Muñoz Admit Provider: Julito Ramon Primary Care Provider: James Bautista Other Providers: Irina Lam ; [facility],Hospital ; [facility] ; [facility] Other Interventions: Discharge Summary Assessment (RN) Last Done: 04/28/21 12:06 Supervising Physician Co-Signing Physician Notes Attending attestation Pt seen and examined in concert with Dr. Elder. In agreement with the documented findings as noted in the resident documentation with any exceptions or additions as noted here. Improving facial pain worse over the cheekbones per patient, controlled on APAP. Gradually improving unsteadiness. On examination, S1/S2 nl RRR no MCG. CTAB. Abd NT/ND BS+ve Ambulatory dysfunction w/ fall - PT/OT - continue therapy with HomeHealth under 24 hour family care. Lyme disease - continue doxycycline to complete 14 day course Else see resident documentation as noted. Total attending time spent on this case on the day of discharge: 20 minutes. Resident Activity Tracking Resident Involvement: Resident Care Provided Care Provided: Adult Hospital Medicine
== END 2021-04-28 13:40 | disposition home health service (06) | DRG 92 ==
LOC: ED 20:26 → 3N 20:26 → SUATTDRO 04-24 02:33 → 3N 04-24 02:59 → SUATTDRO 04-25 16:34